=== PATIENT | female | born 1985 | race Caucasian/White ===

== ENCOUNTER 2016-07-29 17:39 | Emergency (ER) | payer MEDICAID ==
[2016-07-29] MEDS ORDERED: CEFTRIAXONE 1 GM VIAL ONE (19:14)
[2016-07-29] MEDS ORDERED: ONDANSETRON 4 MG VIAL ONE (19:14)
[2016-07-29] MEDS ORDERED: MORPHINE 4 MG/ML SYR ONE (19:15)
[2016-07-29] MEDS ORDERED: SODIUM CHLORIDE 0.9% 1,000 ML ONE (19:15)
[2016-07-29] MEDS ORDERED: SODIUM CHLORIDE 0.9% 100 ML IV ONE (19:15)
== END 2016-07-29 21:00 | disposition home or self-care (01) ==
LOC: ER 17:39
DX: R10.2 Pelvic and perineal pain (principal); N30.00 Acute cystitis without hematuria
CPT/HCPCS: 36415; 80053; 81001; 83690; 84703; 85025; 87088; 96361; 96365